=== PATIENT | female | born 1985 | race Caucasian/White ===

== ENCOUNTER 2019-02-17 09:29 | Inpatient (IN) | payer OTHER ==
[~2019-02-17] VITALS: Ht 167.6 cm; Wt 108.2 kg
[2019-02-17] MEDS ORDERED: PNV11TAB PO (09:46)
[2019-02-17 09:47] VITALS: BP 125/85; PULSE 88; Ht 167.6 cm; Wt 108.2 kg
[2019-02-17] MEDS ORDERED: METHYLERGONOVINE 0.2 MG INJ IM PRN (11:30)
[2019-02-17] MEDS ORDERED: OXYTOCIN 30 UNITS/LR 500 ML IV SCH ×3 (11:30→16:00)
[2019-02-17] MEDS ORDERED: BUTORPHANOL 2 MG INJ IV PRN ×2 (11:30)
[2019-02-17] MEDS ORDERED: CARBOPROST 250 MCG INJ IM PRN (11:30)
[2019-02-17] MEDS ORDERED: LIDOCAINE 1% (MPF) 30 ML INJ INJ PRN (11:30)
[2019-02-17] MEDS ORDERED: MISOPROSTOL 200 MCG TAB PR PRN (11:30)
[2019-02-17] MEDS ORDERED: OXYTOCIN 30 UNITS/LR 500 ML IV PRN (11:30)
[2019-02-17] MEDS ORDERED: LACTATED RINGER'S 1,000 ML IV PRN (12:06)
[2019-02-17] MEDS: LACTATED RINGER'S 1,000 ML IV SCH ×2 (12:18→17:43)
[2019-02-17] MEDS ORDERED: IBUPROFEN 600 MG TAB PO PRN (12:30)
--- NOTE | 2019-02-17 23:03 | PREAC ---
Date/Time of Note Date/Time of Note DATE: 02/17/19 TIME: 23:02 Anesthesia Eval and Record Evaluation Time Pre-Procedure Interview DATE: 02/17/19 TIME: 23:02 Age 34 Sex female NPO: 8 hrs Preoperative diagnosis IUP Planned procedure L&D Epidural Past Medical History Past Medical History: Includes GI: Obesity : : Surgery & Anesthesia Issues No known issue Meds Anticoagulation: No Beta Scot within 24 hr: No Reason Beta Scot not given: Pt. not on B-Scot Reported Medications [id number] ( 19) 1 Each Tablet, 1 TAB PO DAILY, TAB 02/17/19 Current Medications Lactated Ringer's 1,000 ml @ 125 mls/hr Q8H IV Last administered on 02/17/19at 17:43; Admin Dose 125 MLS/HR; Start 02/17/19 at 11:26 Butorphanol Tartrate (Stadol) 1 mg Q2H PRN IV .PAIN SCALE 1-5; Start 02/17/19 at 11:30 Butorphanol Tartrate (Stadol) 2 mg Q2H PRN IV .PAIN SCALE 6-10 Last a dministered on 02/17/19at 20:23; Admin Dose 2 MG; Start 02/17/19 at 11:30 Lidocaine (Xylocaine 1% (Mpf)) 30 ml ONCE PRN INJ .EPISIOTOMY; Start 02/17/19 at 11:30 Oxytocin/Lactated Ringer's 500 ml @ 500 mls/hr ONCE POST IV ; Start 02/17/19 at 11:30 Oxytocin/Lactated Ringer's 500 ml @ 125 mls/hr POST IV ; Start 02/17/19 at 11:30 Oxytocin/Lactated Ringer's 500 ml @ 0 mls/hr ONCE PRN IV .VAGINAL BLEEDING; Start 02/17/19 at 11:30 Methylergonovine Maleate (Methergine) 0.2 mg ONCE PRN IM .VAGINAL BLEEDING; Start 02/17/19 at 11:30 Carboprost Tromethamine (Hemabate) 250 mcg ONCE PRN IM .VAGINAL BLEEDING; Start 02/17/19 at 11:30 Misoprostol (Cytotec) 1,000 mcg ONCE PRN KS .VAGINAL BLEEDING; Start 02/17/19 at 11:30 Ibuprofen (Motrin) 600 mg ONCE PRN PO .PAIN 1-5; Start 02/17/19 at 12:30 Lactated Ringer's 1,000 ml @ 2,000 mls/hr Q30M PRN IV .ANESTHESIA Last administered on 02/17/19at 22:47; Admin Dose 2,000 MLS/HR; Start 02/17/19 at 12:06 Oxytocin/Lactated Ringer's 500 ml @ 0 mls/hr Q0M IV Last administered on 02/17/19at 17:06; Admin Dose 1 MLS/HR; Start 02/17/19 at 16:00 Meds reviewed: Yes Allergies Coded Allergies: No Known Allergy (Unverified , 02/17/19) Allergies Reviewed: Yes Labs/Studies Labs Reviewed: Reviewed by anesthesiologist Result Diagram: 02/17/19 1150 Laboratory Tests 02/17/19 11:50 Blood Bank Test 02/17/19 11:50 Antibody Screen NEGATIVE Blood Type O POSITIVE Rh Immune Globulin Candidate NO test: Positive Studies: ECG Pre-procedure Exam Last vitals Vital Signs Date Temp Pulse Resp B/P (MAP) Pulse Ox O2 O2 Flow FiO2 Time Delivery Rate 02/17/19 98.0 88 125/85 09:47 (98) Airway: Adequate mouth opening, Adequate thyromental dist Mallampati: Mallampati II Teeth: Normal Lung: Normal Heart: Normal ASA Physical Status ASA physical status: 2 Emergency: None Planned Anesthetic Neuraxial: Epidural Planned Pain Management Epidural, Parenteral pain med Pre-operative Attestations Prior to commencing anesthesia and surgery, the patient was re-evaluated, there was verification of: *The patient's identity *The results of appropriate recent lab work and preoperative vital signs *The above evaluation not changing prior to induction *Anesthetic plan, risk benefits, alternative and complications discussed with patient/family; questions answered; patient/family understands, accepts and wishes to proceed. KRISTINE PHILLIPS MD Feb 17, 2019 23:03
[2019-02-17] MEDS ORDERED: NALOXONE (0.4 MG/ML) INJ IV PRN (23:30)
[2019-02-17] MEDS ORDERED: ONDANSETRON 4 MG INJ IV PRN (23:30)
[2019-02-17] MEDS ORDERED: DIPHENHYDRAMINE 50 MG INJ IV PRN (23:30)
[2019-02-17] MEDS ORDERED: FENTAnyl 2MCG/ML-ROPIV 0.2% 100 ML BAG EPI SCH (23:30)
[2019-02-18] MEDS ORDERED: AMPICILLIN 2 GM/NS (PMX) 100 ML IV ONE (01:30)
[2019-02-18] MEDS: LACTATED RINGER'S 1,000 ML IV SCH ×2 (01:37→05:26)
[2019-02-18] MEDS: AMPICILLIN 1 GM/NS (PMX) 50 ML IV SCH ×2 (05:26→09:29)
[2019-02-18] MEDS ORDERED: MINERAL OIL LIGHT 10 ML VIAL TOP ONE (07:00)
--- NOTE | 2019-02-18 10:35 | HP ---
Date/Time of Note Date/Time of Note DATE: 02/18/19 TIME: 10:30 OB - History Hx of Present Free Text/Dictation 34 y.0 at 38w4d with c/o SROM at 0700, no uc's yet. initial VE /-2 ROM plus positiveAFI 7.6 no record is available.admitted for IOL. Chief Complaint: SROM Estimated Due Date: Feb 27, 2019 : 1 Para: 0 Spontaneous : 0 Therapeutic : 0 Care: Other Ultrasounds: Other Obstetrical Complications: None Medical Complications: None Past Family/Social History * Past Medical, Surgical, Family and Obstetric Histories reviewed from chart. Blood Type: Unknown Rubella: unknown RPR/VDRL: Unknown GBS Status: Unknown HBsAG: Unknown OB Admission Exam Vital Signs Vital Signs Vital Signs Date Temp Pulse Resp B/P (MAP) Pulse Ox O2 O2 Flow FiO2 Time Delivery Rate 02/17/19 98.0 88 125/85 09:47 (98) Physical Exam HEENT: WNL Heart: Rhythm Normal Lungs: Clear, Equal Abdomen: WNL Extremities: Normal Reflexes: Normal Cervical Dilatation: 1cm Effacement: 50% Station: -2 Membranes: Ruptured Amniotic Fluid: Clear Heart Rate: 140's Accelerations: Accelerations Present Decelerations: No Decelerations Varibility: Moderate Contractions on Admission: None Last 72 hours Lab Results CBC & BMP 02/17/19 11:50 OB Assessment/Plan Reason for admission: rupture of membranes Other Assessment: IUP 38w4d Plan: Induction STACEY COFFEY MD Feb 18, 2019 10:35
--- NOTE | 2019-02-18 10:38 | LDN ---
Date/Time of Note Date/Time of Note DATE: 02/18/19 TIME: 10:35 Delivery Summary of normal female with loose nuchal cord x1 Weeks of Gestation 38w5d Placenta Delivered: Spontaneously, Intact & Complete Meconium: none Episiotomy: No Perineal laceration: 2 Laceration repair: 00ch gut Anesthesia type: Epidural Sponge & Needle done & correct: Yes All needle counts correct: Yes Any foreign bodies felt in the: No Infant Delivery Information Sex Sex: female Apgars 1 Minute: 8 5 Minute: 9 Suctioning Nose & mouth suctioned at aakash: Yes Delee suction performed: Yes Umbilical Cord Umbilical cord with: 3 Vessels Cord presentations: nuchal cord Nuchal cord present X: 1 Cord Blood was obtained: Yes Mother & Baby Disposition Disposition Mom & Baby to Maternity; Good: Yes Mom transferred to: Other Baby to NICU: No () STACEY COFFEY MD Feb 18, 2019 10:38
[2019-02-18 12:10] VITALS: BP 112/70; PULSE 97; RESP 18
[2019-02-18] MEDS ORDERED: BENZOCAINE 20% 56 ML SPRAY TOP PRN (12:30)
[2019-02-18] MEDS ORDERED: ZOLPIDEM 5 MG TAB PO PRN (12:30)
[2019-02-18] MEDS ORDERED: WITCH HAZEL/GLYCERIN PAD PR PRN (12:30)
[2019-02-18] MEDS ORDERED: OXYTOCIN 30 UNITS/LR 500 ML IV PRN (12:30)
[2019-02-18] MEDS ORDERED: OXYCODONE/ASPIRIN (4.88/325) TAB PO PRN ×2 (12:30)
[2019-02-18] MEDS ORDERED: MISOPROSTOL 200 MCG TAB PR PRN (12:30)
[2019-02-18] MEDS ORDERED: CARBOPROST 250 MCG INJ IM PRN (12:30)
[2019-02-18] MEDS ORDERED: METHYLERGONOVINE 0.2 MG INJ IM PRN (12:30)
[2019-02-18 13:10] VITALS: BP 119/69; PULSE 95; RESP 18
[2019-02-18] MEDS: LANOLIN HPA 1 PKT TOP PRN (14:01)
[2019-02-18 15:45] VITALS: BP 111/57; PULSE 99; RESP 16
[2019-02-18 16:00] VITALS: BP 111/57; PULSE 99; RESP 16
[2019-02-18] MEDS: IBUPROFEN 600 MG TAB PO SCH (19:04)
[2019-02-18 20:15] VITALS: BP 105/64; PULSE 76; RESP 17
[2019-02-18] MEDS: SENNA/DOCUSATE NA (8.6MG/50MG) TAB PO SCH (21:26)
[2019-02-19] MEDS: IBUPROFEN 600 MG TAB PO SCH ×4 (00:04→18:16)
[2019-02-19 04:00] VITALS: BP 116/63; PULSE 88; RESP 18
[2019-02-19 08:00] VITALS: BP 120/77; PULSE 88; RESP 18
[2019-02-19] MEDS: LANOLIN HPA 1 PKT TOP PRN (09:54)
[2019-02-19] MEDS: SENNA/DOCUSATE NA (8.6MG/50MG) TAB PO SCH ×2 (09:54→21:46)
--- NOTE | 2019-02-19 10:32 | PAC ---
Date/Time of Note Date/Time of Note DATE: 02/19/19 TIME: 10:32 Post-Anesthesia Notes Post-Anesthesia Note Last documented vital signs Vital Signs Date Temp Pulse Resp B/P (MAP) Pulse Ox O2 O2 Flow FiO2 Time Delivery Rate 02/19/19 98.2 88 18 116/63 Room Air 04:00 (80) Activity: WNL Respiratory function: WNL Cardiovascular function: WNL Mental status: Baseline Pain reasonably controlled: Yes Hydration appropriate: Yes Nausea/Vomiting absent: Yes Comments BP:110/54, P:78, Spo2:100%, T:98,8 KRISTINE PHILLIPS MD Feb 19, 2019 10:32
--- NOTE | 2019-02-19 15:44 | PN ---
Date/Time of Note Date/Time of Note DATE: 02/19/19 TIME: 15:43 OB Subjective Subjective Subjective Subjective: Patient without complaints. Tolerating a regular diet. Breast-feeding. Lochia within normal limits. Has not ambulated. Objective: Vital signs within normal limits. H/H: 10.7/32.4 General: No apparent distress. Abdomen: Fundus 2 fingerbreadths below the umbilicus Extremities nontender to palpation. Assessment/plan: 1. day #1routine care 2. Anemia acute blood lossferrous sulfate Decision: Anticipate discharge on 02/20/2019 HONEY PEREA MD Feb 19, 2019 15:44
[2019-02-19] MEDS: FERROUS SULFATE (EC) 325 MG TAB PO SCH (16:40)
[2019-02-19 16:44] VITALS: BP 119/66; PULSE 83; RESP 18
[2019-02-19 20:30] VITALS: BP 128/78; PULSE 86; RESP 18
[2019-02-20 03:59] VITALS: BP 111/65; PULSE 91; RESP 17
[2019-02-20] MEDS: IBUPROFEN 600 MG TAB PO SCH ×3 (05:34→11:37)
[2019-02-20 07:40] VITALS: BP 138/80; PULSE 92; RESP 18
[2019-02-20] MEDS: SENNA/DOCUSATE NA (8.6MG/50MG) TAB PO SCH (08:47)
[2019-02-20] MEDS: FERROUS SULFATE (EC) 325 MG TAB PO SCH (08:47)
[2019-02-20] MEDS ORDERED: DIPHTH/TET/ACEL PERTUSS (ADULT) 0.5 ML VIAL IM* ONE (09:00)
--- NOTE | 2019-02-20 13:35 | DS ---
Date/Time of Note Date/Time of Note DATE: 02/20/19 TIME: 13:34 Obstetrical Discharge Record Final Diagnosis Final Diagnosis: Term delivered Other Final Diagnosis Subjective: Patient without complaints. Tolerating regular diet. ambulating. voiding. Objective: Vital signs 138/80 hr 99 H/H: 10.7/32.4 General: No apparent distress. Abdomen: Fundus firm two fingerbreadths below umbillicus Extremities nontender to palpation. Assessment/plan: 1. day#3-00-yryp-old G1 presented at 38 weeks and 4 days with premature rupture of membranes. She underwent induction of labor. She had a vaginal delivery on 02/18/2019. Total course was uncomplicated. 2. Anemia acute blood loss-ferrous sulfate Condition on Discharge Physical Assessment Patient Condition: Stable MILESTONE,HONEY NULL Feb 20, 2019 13:35
[2019-02-20] MEDS ORDERED: FER325 PO (13:36)
[2019-02-20] MEDS ORDERED: IBUP-1542 PO (13:36)
[2019-02-20] MEDS ORDERED: FERROUS SULFATE (EC) 325 MG TAB PO SCH (14:00)
--- NOTE | 2019-02-21 14:45 | DELSUM ---
Delivery Summary A-C Datetime Report Generated by CPN: 02/21/2019 14:45 DELIVERY PERSONNEL Cash Application Representative: Ochoa, Wenbing MATERNAL INFORMATION Delivery Anesthesia: Epidural Medications in Delivery: pitocin Delivery QBL (ml): 98 Placenta Cultured: No Maternal Complications: None LABOR SUMMARY EDC: 02/27/2019 00:00 No. Babies in Womb: 1 Attempted: No Labor Anesthesia: Epidural LABOR INFORMATION Reason for Induction: Not Applicable Onset of Labor: 02/17/2019 07:00 Complete Dilatation: 02/18/2019 08:52 Group B Beta Strep: Negative Antibiotics # of Doses: 3 Antibiotics Time of Last Dose: 02/18/2019 09:29 Steroids Given: None Reason Steroids Not Administered: Not Applicable MEMBRANES Membranes Rupture Method: Spontaneous Rupture of Membranes: 02/17/2019 07:00 Length of Rupture (hr): 26.83 Amniotic Fluid Color: Clear Amniotic Fluid Amount: Small Amniotic Fluid Odor: Normal STAGES OF LABOR Stage 1 hr: 25 Stage 1 min: 52 Stage 2 hr: 0 Stage 2 min: 58 Stage 3 hr: 0 Stage 3 min: 3 Total Time in Labor hr: 26 Total Time in Labor min: 53 VAGINAL DELIVERY Episiotomy: None Laceration Extension: Second Degree Laceration Type: Perineal Laceration Repair: Yes Initial Vag Sponge Count: 10 Final Vag Sponge Count: 10 Initial Vag Sharps Count: 1 Final Vag Sharps Count: 2 Sponge Count Correct: Yes; Vaginal Sweep Performed Sharps Count Correct: Yes Count Comment: 1 sharp added BABY A INFORMATION Delivery Date/Time: 02/18/2019 09:50 Method of Delivery: Vaginal Born in Route : No : N/A Forceps: N/A Vacuum Extraction: N/A Shoulder Dystocia : No SHOULDER DYSTOCIA BABY A Infant Delivery Date/Time: 02/18/2019 09:50 PRESENTATION/POSITION BABY A Presentation: Cephalic Cephalic Presentation: Vertex Vertex Position: Left Occipital Anterior Breech Presentation: N/A PLACENTA INFORMATION BABY A Placenta Delivery Time : 02/18/2019 09:53 Placenta Method of Delivery: Spontaneous Placenta Status: Delivered SCORES BABY A Heart Rate 1 min: >100 bpm Resp Effort 1 min: Good Cry Reflex Irritability 1 min: Cough/Sneeze/Pulls Away Muscle Tone 1 min: Active Motion Color 1 min: Blue/Pale Resuscitation Effort 1 min: Tactile Stimulation SCORE 1 MIN: 8 Heart Rate 5 min: >100 bpm Resp Effort 5 min: Good Cry Reflex Irritability 5 min: Cough/Sneeze/Pulls Away Muscle Tone 5 min: Active Motion Color 5 min: Body Edmund, Extremit Blue SCORE 5 MIN: 9 INFORMATION BABY A Gestational Age at Delivery: 38.5 Gestational Status: Early Term- 37- 38.6 Weeks Infant Outcome : Liveborn, with signs of life Infant Condition : Stable Sex: Female IDENTIFICATION/MEDS BABY A ID Band Number: [id number] ID Band Location: Right Leg; Left Arm Sensor Applied: Yes Sensor Number: [id number] Sensor Location : Cord Clamp WEIGHT/LENGTH BABY A Infant Birthweight (gm): 2935 Infant Weight (lb): 6 Infant Weight (oz): 8 Length (in): 20.00 Length (cm): 50.80 CORD INFORMATION BABY A No. Cord Vessels: 3 Nuchal Cord : Around Neck x1, Loose Cord Blood Taken: Yes Infant Suction: Mouth; Nose
== END 2019-02-20 14:25 | disposition home or self-care (01) | DRG 807 ==
LOC: OBT 09:29 → L-D 09:30 → OBT 11:35 → L-D 11:36 → PP1 02-18 12:26
PROVIDERS: ADMIT Obstetrics & Gynecology; ATTEND Obstetrics & Gynecology
PROC: 10E0XZZ Delivery of Products of Conception, External Approach (ICD-10-PCS; principal; 2019-02-18)
PROC: 0KQM0ZZ Repair Perineum Muscle, Open Approach (ICD-10-PCS; 2019-02-18)
DX: O69.81X0 Labor and delivery complicated by cord around neck, without compression, not applicable or unspecified (principal); O70.1 Second degree perineal laceration during delivery; Z37.0 Single live birth; Z3A.38 38 weeks gestation of pregnancy
CPT/HCPCS: 62322; 76818; 84112; 85025; 85610; 85730; 86592; 86850; 86900; 86901; 87340; 90715; G0463; J0290; J0595; J2590; J3010; J7120